=== PATIENT | male | born 1975 | race Caucasian/White ===

== ENCOUNTER 2024-03-04 11:39 | Emergency (ER) | payer OTHER, SELFPAY ==
--- NOTE | ~2024-03-04 | CT_ITS ---
EXAMINATION: CTA brain carotid DATE: 03/04/2024 11:49 INDICATION: Left hemiparesis. TECHNIQUE: Computed tomographic angiography (CTA) of the head was performed without and with 100 mL O mnipaque-350 intravenous contrast. CTA of the neck was performed with intravenous contrast. Automated exposure control and iterative reconstruction technique were employed. The dose-length product was 9 28.06 mGy-cm. Maximum intensity projection and volume rendered 3D-reconstructions were created by the technologist on a separate workstation. COMPARISON: Head CT 03/04/2024 FINDINGS: HEAD CTA: There is no intracranial hemorrhage, acute infarction, or abnormal intracranial mass lesion . The ventricles are normal in size. The orbits are normal. The mastoid air cells are normal. The par anasal sinuses are clear. The vertebral arteries are codominant. There is no significant stenosis of basilar artery or the posterior cerebral arteries. There is no significant stenosis of the intracrani al internal carotid arteries or anterior cerebral arteries. There is total occlusion of a right M2 br anch of middle cerebral artery. Anterior communicating artery is normal. Right posterior communicatin g artery is normal. A left posterior communicating artery is not identified. There is no aneurysm. NECK CTA: The lungs demonstrate mild scarring at the apices. There are no pathologically enlarged lym ph nodes. There is no significant stenosis of the vertebral arteries. There is plaque in proximal rig ht internal carotid artery. There is 0% stenosis of the proximal right internal carotid artery relati ve to normal distal artery lumen diameter (NASCET criteria). There is 0% stenosis of the proximal lef t internal carotid artery relative to normal distal artery lumen diameter. There is mild cervical spo ndylosis. IMPRESSION: 1. Total occlusion of a right M2 middle cerebral artery branch. I called this result to Dr. Chase. 2. 0% stenosis of the proximal internal carotid arteries relative to normal distal artery lumen diame ters (NASCET criteria). Reviewed, dictated and finalized at location A. IMPRESSION: 1. Total occlusion of a right M2 middle cerebral artery branch. I called this r esult to Dr. Chase. 2. 0% stenosis of the proximal internal carotid arteries relative to normal dis michelle artery lumen diameters (NASCET criteria).
--- NOTE | ~2024-03-04 | CT_ITS ---
EXAMINATION: CT brain wo con DATE: 03/04/2024 11:40 INDICATION: Right-sided headache. Left hemiparesis. TECHNIQUE: Computed tomography (CT) of the head was performed without intravenous contrast. The mA wa s adjusted according to patient size. Iterative reconstruction technique was employed. The dose-lengt h product was 605.33 mGy-cm. COMPARISON: None FINDINGS: There is no intracranial hemorrhage, acute infarction, or abnormal intracranial mass lesion . The ventricles are normal in size. There is mild mucosal thickening in the ethmoid sinuses. The mas toid air cells are normal. The orbits are normal. IMPRESSION: 1. Normal brain. I called this result to Dr. Chase. Reviewed, dictated and finalized at location A.
--- NOTE | ~2024-03-04 | XR_ITS ---
EXAMINATION: XR chest 1V portable DATE: 03/04/2024 12:06 INDICATION: Slurred speech. Left hemiparesis. TECHNIQUE: A single frontal view of the chest was obtained. COMPARISON: None. FINDINGS: There is symmetric scarring at the lung apices. No pleural effusion or pneumothorax. The he art size is normal. IMPRESSION: 1. Symmetric scarring at the lung apices. Reviewed, dictated and finalized at location A.
--- NOTE | 2024-03-04 11:36 | ED.NEUROSD ---
HPI - Neuro Symptoms/Deficit General Chief Complaint: Suspected CVA Stated Complaint: code stroke History of Present Illness HPI Narrative: 48-year-old male presenting to the emergency department for evaluation of acute onset left-sided weakness. Patient developed slurred speech, left-sided arm weakness and left lower leg weakness. Patient is not on any blood thinners and patient has no prior history of CVA. Patient reports he woke up at 4:00 a.m and went to sleep on the couch. Patient reports approximately 2 hours prior to arrival he woke up with a headache but states he was able to walk approximately 30 ft states he had onset of leg weakness. Patient was emphatic that his left arm and left leg were working when he woke up. Upon arrival emergency department patient has slurred speech, left arm weakness and left leg weakness. Patient has decreased sensation over the left arm. Mother confirmed that the patient had a fall at 10:30 a.m. and mother also confirmed that the patient did walk approximately 25 ft before he had the fall. Patient denies any prior intracranial surgery, patient has no recent surgeries, no active bleeding and patient is on no blood thinners. Related Data Allergies Allergy/AdvReac Type Severity Reaction Status Date / Time prochlorperazine Allergy Anaphylaxis Verified 03/04/24 12:04 Review of Systems Review of Systems: All systems reviewed & are unremarkable except as noted in HPI and below PMFSH Past Medical History Medical History Acute bronchitis due to other specified organisms Acute pharyngitis, unspecified (10/10/17) Acute sinusitis, unspecified Anxiety disorder, unspecified Bronchitis, not specified as acute or chronic Current moderate episode of major depressive disorder without prior episode Dietary counseling and surveillance (01/12/18) Encounter for screening for lipoid disorders Hordeolum externum left upper eyelid Screening for diabetes mellitus Screening for prostate cancer Vitamin B 12 deficiency Vitamin D deficiency Family History Family History Grandparent Cerebrovascular accident Father Family history of diabetes mellitus in first degree relative Family history of coronary artery disease CHF (congestive heart failure) Pneumonia Mother No problems noted. Sibling No problems noted. 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 Course Course Emergency Course: Patient was transferred to [facility] after tPA Vital Signs Vital signs: Vital Signs Temperature 97.6 F 03/04/24 11:57 Pulse Rate 78 03/04/24 11:57 Respiratory Rate 18 03/04/24 11:57 Blood Pressure 123/94 H 03/04/24 11:57 Pulse Oximetry 100 03/04/24 11:57 Oxygen Delivery Room Air 03/04/24 11:57 Temperature 97.6 F 03/04/24 11:57 Pulse Rate 83 03/04/24 12:30 Respiratory Rate 13 03/04/24 12:30 Blood Pressure 123/78 03/04/24 12:30 Pulse Oximetry 96 03/04/24 12:30 Oxygen Delivery Room Air 03/04/24 11:57 MDM - Neuro Symptoms/Deficit MDM Narrative Medical decision making narrative: 48-year-old male presents emergency department for evaluation for acute onset of left-sided weakness. Patient had a total occlusion of the M2 segment of the right MCA. Patient was within the time frame for tPA. TPA bolus was started emergency department along with the infusion. Case was discussed with Neurology at [facility]. Risks and benefits of tPA were discussed with both patient
[2024-03-04 11:42] LABS: Estimated Glomerular Filt Rate > 60
[2024-03-04 11:57] VITALS: BP 123/94; PULSE 78; RESP 18; TEMP 36.4; O2SAT 100
[2024-03-04 11:59] LABS: Basophils Percent Auto 0.4 % (0.2-1.2); Eosinophils Absolute Auto 0.1 K/mm3 (0-0.3); Eosinophils Percent Auto 1.1 % (0-4.4); Immature Granulocyte Absolute 0.02 K/mm3 (0.00-0.031); Immature Granulocyte Percent A 0.4 % (0-0.5); Lymphocytes Absolute Auto 1.89 K/mm3 (0.9-3.2); Lymphocytes Percent Auto 34.1 % (18.3-44.2); Mean Corpuscular HGB Conc 34.1 g/dl (32-36); Mean Corpuscular Hemoglobin 37.5 pg (26-34); Mean Corpuscular Volume 109.9 fl (80-100); Mean Platelet Volume 10.2 fl (7.4-10.4); Monocytes Absolute Auto 0.4 K/mm3 (0.1-0.6); Monocytes Percent Auto 6.5 % (2.6-8.5); Neutrophils Absolute Auto 3.2 K/mm3 (1.3-6.7); Neutrophils Percent Auto 57.5 % (45.5-73.1); Platelet Count Result 362 k/mm3 (150-375); Red Blood Count 3.73 M/mm3 (4.6-6.20); Red Cell Distribution Width 14.9 % (11.5-14.5); White Blood Count 5.5 K/mm3 (4.5-10.0)
--- NOTE | 2024-03-04 11:59 | ECG_ITS ---
SEE SCANNED COPY FOR CONFIRMED REPORT MTDD
[2024-03-04 12:09] LABS: Platelet Estimate Adequate (Adequate); Schistocytes None Seen
[2024-03-04 12:30] VITALS: BP 123/78; PULSE 83; RESP 13; O2SAT 96
[2024-03-04 12:48] LABS: Alanine Aminotransferase 21 U/L (6-50); Albumin Level 4.2 g/dL (3.5-5.1); Alkaline Phosphatase 76 U/L (38-126); Anion Gap 4 mmol/L (4-12); Aspartate Amino Transferase 32 U/L (17-59); Bilirubin,Total 0.5 mg/dL (0.2-1.3); Blood Urea Nitrogen 11 mg/dL (9-20); Carbon Dioxide 27 mmol/L (22-30); Chloride 107 mmol/L (98-107); Estimated CRCL calculation 81 ml/min; Estimated Glomerular Filt Rate > 60; Glucose 100 mg/dL (65-110); Potassium 4.2 mmol/L (3.4-5.0); Sodium 138 mmol/L (137-145)
[2024-03-04 13:00] LABS: Troponin I < 0.012 ng/mL (0.000-0.034)
[2024-03-11 09:07] LABS: Glucose Point of Care 98 mg/dl (65-105)
== END 2024-03-04 12:43 | disposition short-term general hospital (02) ==
PROVIDERS: Emergency Provider Emergency Medicine; PCP Family Medicine
DX: I63.511 Cerebral infarction due to unspecified occlusion or stenosis of right middle cerebral artery (principal); R29.713 NIHSS score 13; E53.8 Deficiency of other specified B group vitamins; E55.9 Vitamin D deficiency, unspecified; R94.31 Abnormal electrocardiogram [ECG] [EKG]
CPT/HCPCS: 36415; 37195; 70450; 70496; 70498; 71045; 80053; 82948; 84484; 85025; 93005; 99285; J2997; J3101; Q9967

== ENCOUNTER 2024-06-20 12:30 | Outpatient (RCR) | payer OTHER, SELFPAY ==
--- NOTE | 2024-04-03 11:33 | STOPEVAL1 ---
Assessment and note entered by Alma Irvin [employer]KING [employer]ORER Evaluation Information Assessment Status Evaluation Reported Pain Level Pain Score 0: Self Report Assessment ST Clinical Summary COMMUNICATION EVALUATION The patient reports he had a CVA on March 04, 2024, he began having difficulty walking and speaking. He was admitted to [facility] with acute middle cerebral artery stroke. He was then sent to [facility] from 03/14 to 03/31. He reported that Speech Therapy addressed visual neglect/ deficit and other cognitive issues. Patient performed as follows on subtests from the [employer] Information Processing Assessment RIPA) and portions of the [facility] Cognitive Assessment: RIPA: I. Immediate Memory: . Recalled all of 5 and 7 random number strings, but both times added an extra 4 ; recalled 4/5 words in unrelated word string. II. Temporal Orientation/Recent Memory: . IX. Organization: Divergent Naming Task; patient recalled at least 15 items per category, only one time out of 4 categories. On 3/4 categories, patient reached a stopping point and began to ramble, on two occasions, he discussed the category group, and on occasion, he began to talk about introducing his girlfriend to...(therapist stopped him and encouraged return to task, which did not assist with recalling any additional category members). X. Auditory Processing and Retention: points. [facility] Cognitive Evaluation: Functional Math: 100% acc. Auditory Processing of a Paragraph Story: 100% acc. Visual Scanning of a Paragraph: 100% acc. with delays reaching the left side of the paper. Visual Scanning of a Restaurant Menu: 70% acc. Questions concerning right side of page (easy), required a response from the left side of the page, which was more difficult. For example, the prices of menu items were on
--- NOTE | 2024-04-03 12:19 | OTOPEVAL1 ---
Assessment and note entered by Duarte Tao, ADRYAN/Cortez, CHT Evaluation Information Diagnosis CVA Onset 03/04/24 Subjective Information Patient presented to the hospital on 03/04/24 with left sided weakness. Diagnosed with right MCA infarct. He discharged to inpatient rehab where he received OT/PT/ST services. Discharged home on 03/31/24. He lives at home with his mom. He is very motivated to be able to run around with his grandsons again. Current level of functioning - Has a walk in shower, shower chair, but has not showered since discharging home from inpatient rehab. He dresses and toilets independently. He is using a isael cane for his mobility. Their home has 2 steps to get into the home. 1 story home. He is staying on the main floor at this time. His bedroom was in the basement. His mom is doing all of the cooking, cleaning, and laundry. Prior level of functioning - Independent with ADLs , no device, working, and driving. He did the household tasks at home. Works at [employer]. 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 Assessment OT Clinical Summary Patient presents with left sided weakness following CVA. Functional strength, coordination, and use is severely limited due to weakness and tone. Skilled OT indicated to maximize functional use of the left UE through therapeutic exercise, positioning education, muscle facilitatory techniques, NMES, and HEP instruction and progression. He may also benefit from fabrication of a resting hand orthosis due to flexor tone to inhibit hand/wrist muscle shortening and to prevent contractures. Plan of Care Interventions Therapeutic Exercise,Neuro Re-education, Therapeutic Activities,Electrical Stimulation, Check Out for Orthotic/Pr OT Services Indicated Yes Treatment Frequency and 2x/week for 10 visits Duration These treatments will address the objective and functional deficits as defined above. The patient will be advanced safely and appropriately in order for the patient to progress towards his/her prior level of function. Additional exercises will be introduced and as well as a comprehensive home exercise program upon discharge, if needed, ?to ensure carryover of functional gains achieved in the clinic. This treatment plan has
--- NOTE | 2024-04-03 12:19 | OPREHPOC ---
Outpatient Therapy Plan of Care This is a Multidisciplinary Plan of Care that may contain components documented by all disciplines (PT, OT, and ST.) OT Problem 1 OT Problem #1 Knowledge Deficit OT Goal 1 Goal 1. Patient to be independent with instructed materials. Target Visit 10 OT Problem 2 OT Problem #2 Impaired Strength OT Goal 1 Goal 1. Increase (R) shoulder flexion and abduction strength to 3+/5. 2. Increase (R) elbow flexion and extension strength to 3+/5. 3. Increase (R) forearm pronation and supination strength to 3/5. 4. Increase (R) wrist flexion/extension strength to 3/5. 5. Increase (R) finger extension strength to 3/5. 6. Increase (R) finger flexion strength to 4/5. Target Visit 10
--- NOTE | 2024-04-10 16:41 | PTOPEVAL1 ---
Assessment and note entered by Roni Guerrero Evaluation Information Assessment Status Evaluation Diagnosis CVA Onset 03/04/24 Subjective Information Pt. reports he suffered a CVA on 03/04/24. He reports that he woke that morning and noticed he got up to go to the bathroom and lost his balance. He reports matthew the attempted to get up and immediately fell again. His mother was home and found him. He reports that he was flown to [facility] that day. He reports that he was in the hospital for about 10 days before going to rehab. He participated in rehab about 2-3 weeks before returning home on 03/31/24. 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 He was able to drive. He reports that he currently has limited use of the left arm and left leg. He is using a described isael walker for ambulation. He reports that he currently lives with his mother. He reports prior to the stroke he lived in the basement, however currently lives upstairs due to difficulty with stairs. He reports that he still has trouble with putting on his shirts and needs occasional help. he states that he can only walk short distance and the left leg fatigues easily. He reports that his goal is to be able to walk without an AD. Reported Pain Level Pain Score 4: Self Report Assessment PT Clinical Summary Pt. is a 48 year old male who enters the clinic for initial evaluation following CVA with left sided hemiplegia. He presents with impaired gait, impaired balance, impaired l.e. strength and functional decline. Continued skilled PT is indicated in order to improve these areas to assist the pt. in achieving his goal of improved gait and improved balance. Plan of Care Interventions Electrical Stimulation,Gait Training,Manual Therapy,Neuro Re-education,Patient/Caregiver Educati,Therapeutic Activities,Therapeutic Exercise,Self-Care/Home Management PT Services Indicated Yes Treatment Frequency and 2x/week x 10 visits Duration These treatments will address the objective and functional deficits as defined above. The patient will be advanced safely and appropriately in order for the patient to progress towards his/her prior level of function. Additional exercises will be introduced and as well as a comprehensive home exercise program upon discharge, if
--- NOTE | 2024-04-10 16:41 | OPREHPOC ---
Outpatient Therapy Plan of Care This is a Multidisciplinary Plan of Care that may contain components documented by all disciplines (PT, OT, and ST.) PT Problem 1 PT Problem #1 Knowledge Deficit PT Goal 1 Goal Independent with a HEP focusing on l.e. strength. Target Visit 2 PT Problem 2 PT Problem #2 Impaired Balance PT Goal 1 Goal Improve tinetti score to 19 or greater indicating improve safety Target Visit 10 PT Problem 3 PT Problem #3 Impaired Gait PT Goal 1 Goal Pt. will be able to ambulate without an AD for distance of 150' with cga. Target Visit 10 PT Problem 4 PT Problem #4 Impaired Functional Mobil PT Goal 1 Goal Pt. will complete the 6 minute walk test with a single point cane with cga over a distance of 300' for community navigation. Target Visit 10 OT Problem 1 OT Problem #1 Knowledge Deficit OT Goal 1 Goal 1. Patient to be independent with instructed materials. Target Visit 10 OT Problem 2 OT Problem #2 Impaired Strength OT Goal 1 Goal 1. Increase (R) shoulder flexion and abduction strength to 3+/5. 2. Increase (R) elbow flexion and extension strength to 3+/5. 3. Increase (R) forearm pronation and supination strength to 3/5. 4. Increase (R) wrist flexion/extension strength to 3/5. 5. Increase (R) finger extension strength to 3/5. 6. Increase (R) finger flexion strength to 4/5. Target Visit [address] Problem #[address] Goal 1 Goal 1. Patient will voice and demonstrate anatomy and physiology related to (swallowing and voicing), communication impairment, swallowing impairment, treatment plan, home exercise program, compensatory programs, and risks and benefits related to direct Speech Therapy tasks. Target Visit [address] Problem #[address] Goal 1 Goal 1. Demonstrate recall of specific memory
--- NOTE | 2024-05-02 12:17 | STOPDC ---
Assessment and note entered by Alma Irvin [employer] Evaluation Information Assessment Status Discharge Reported Pain Level Pain Score 0: Self Report Pain Score 1: Self Report Pain Score 0: Self Report Assessment ST Clinical Summary TREATMENT AND DISCHARGE SUMMARY Patient has been seen for 8 visits of skilled Speech Therapy focusing on memory/recall, attention to task, and visual scanning/reading comprehension secondary to left visual deficit/ neglect. Initially patient was verbose and frequently allowed himself to stray from task with random, unrelated comments, improving such that by last session, patient was well able to stay on task and complete tasks with no significant effort to remain on task or cueing by therapist. Additionally, he exhibited good memory for items presented verbally by therapist and good ability to find all items required on the left side of page. Patient is being discharged with goals achieved and no further skilled Speech Therapy required. Therapist will provide patient with a packet of visual tasks such as mazes/maps and other visual puzzles to complete independently. Patient was in agreement with discharge recommendations. Plan of Care ST Services Indicated No
--- NOTE | 2024-05-13 14:33 | OTOPPROG ---
Assessment and note entered by ADRYAN Bolton/Cortez, CHT Progress Update 05/13/24 Diagnosis CVA Onset 03/04/24 Subjective Information Patient reports he is slowly making improvements. Notices his hand and wrist are moving better. He is using the left hand on the rollator when walking into the clinic. Unable to to the brake on the rollator with the left hand however. He reports he is doing his bathing, dressing, and toileting independently. Assessment OT Clinical Summary Patient presents with left sided weakness following CVA. Today he is demonstrating improvements in all planes of motion in the left arm. Noted improvements in functional ROM and strength. He continues to demonstrate severe limitations with functional use to residual strength and coordination deficits. Continued skilled OT indicated to maximize functional use of the left UE through therapeutic exercise, positioning education, muscle facilitatory techniques, NMES, and HEP instruction and progression. Plan of Care Interventions Therapeutic Exercise,Neuro Re-education, Therapeutic Activities,Electrical Stimulation, Check Out for Orthotic/Pr OT Services Indicated Yes Treatment Frequency and 2x/week for 10 visits Duration These treatments will address the objective and functional deficits as defined above. The patient will be advanced safely and appropriately in order for the patient to progress towards his/her prior level of function. Additional exercises will be introduced and as well as a comprehensive home exercise program upon discharge, if needed, ?to ensure carryover of functional gains achieved in the clinic. This treatment plan has been reviewed and agreement upon by the patient.
--- NOTE | 2024-05-13 14:33 | OPREHPOC ---
Outpatient Therapy Plan of Care This is a Multidisciplinary Plan of Care that may contain components documented by all disciplines (PT, OT, and ST.) PT Problem 1 PT Problem #1 Knowledge Deficit PT Goal 1 Goal Independent with a HEP focusing on l.e. strength. Target Visit 2 PT Problem 2 PT Problem #2 Impaired Balance PT Goal 1 Goal Improve tinetti score to 19 or greater indicating improve safety Target Visit 10 PT Problem 3 PT Problem #3 Impaired Gait PT Goal 1 Goal Pt. will be able to ambulate without an AD for distance of 150' with cga. Target Visit 10 PT Problem 4 PT Problem #4 Impaired Functional Mobil PT Goal 1 Goal Pt. will complete the 6 minute walk test with a single point cane with cga over a distance of 300' for community navigation. Target Visit 10 OT Problem 1 OT Problem #1 Knowledge Deficit OT Goal 1 Goal 1. Patient to be independent with instructed materials. ---OT POC UPDATE 05/13/24--- 1. Met Target Visit 20 OT Problem 2 OT Problem #2 Impaired Strength OT Goal 1 Goal 1. Increase (R) shoulder flexion and abduction strength to 3+/5. 2. Increase (R) elbow flexion and extension strength to 3+/5. 3. Increase (R) forearm pronation and supination strength to 3/5. 4. Increase (R) wrist flexion/extension strength to 3/5. 5. Increase (R) finger extension strength to 3/5. 6. Increase (R) finger flexion strength to 4/5. ---OT POC UPDATE 05/13/24--- 1. Progressing, continue 2. Progressing, continue 3. Progressing, continue 4. Progressing, continue 5. Progressing, continue 6. Progressing, continue Target Visit [address] Problem #[address] Goal 1 Goal 1. Patient will voice and demonst
--- NOTE | 2024-05-13 15:14 | OPREHPOC ---
Outpatient Therapy Plan of Care This is a Multidisciplinary Plan of Care that may contain components documented by all disciplines (PT, OT, and ST.) PT Problem 1 PT Problem #1 Knowledge Deficit PT Goal 1 Goal Independent with a HEP focusing on l.e. strength. Target Visit 2 Progress Met Comment 05-13-24 progress goal met continue to progress HEP and education PT Goal 2 Target Visit 19 PT Problem 2 PT Problem #2 Impaired Balance PT Goal 1 Goal Improve tinetti score to 19 or greater indicating improve safety Target Visit 10 Progress Not Met Comment 05-13-24 progress goal not met, is 11/23 continue towards goal PT Goal 2 Target Visit 19 PT Problem 3 PT Problem #3 Impaired Gait PT Goal 1 Goal Pt. will be able to ambulate without an AD for distance of 150' with cga. Target Visit 10 Progress Not Met Comment 05-13-24 progress goal not met continue towards goal PT Goal 2 Target Visit 19 PT Problem 4 PT Problem #4 Impaired Functional Mobility PT Goal 1 Goal Pt. will complete the 6 minute walk test with a single point cane with cga over a distance of 300' for community navigation. Target Visit 10 Progress Partially Met Comment 05-13-24 progress goal met for distance walked but used rollator PT Goal 2 Goal NEW GOALS: 1* 6 minute walking test distance of 475' with assistive device 2* pt report going into his basement, 14 steps without any issues 3* pt transfer sitting/floor with use of UE on mat to assist
--- NOTE | 2024-05-13 15:15 | PTOPPROG ---
Assessment and note entered by Katy Carpio, PT Progress Report Assessment Status Progress Diagnosis CVA Onset 03/04/24 Subjective Information walking is better; use isael cane at home and rollator when going out; have not had any falls; doing the leg exercises at home; want to be able to do down into my basement, 14 steps with one hand railing --have 2 steps into home and doing OK with the cane on them; Assessment PT Clinical Summary Jefferson has received 10 PT sessions. Compared to the initial evaluation: Tinetti score improved by 1 to 11/23= high risk for falls; TUG from 45 to 44 seconds- using rollator; 6 minute walking test distance from 190' to 400', using rollator walker; able to perform 12 steps with 1 hand railing and CGA for safety; education for HEP, safety and balance activities. The goals were partially met. Continue PT. Plan of Care Interventions Neuro Re-education,Patient/Caregiver Education, Therapeutic Activities,Therapeutic Exercise PT Services Indicated Yes Treatment Frequency and 2x/wk for 9 visits Duration These treatments will address the objective and functional deficits as defined above. The patient will be advanced safely and appropriately in order for the patient to progress towards his/her prior level of function. Additional exercises will be introduced and as well as a comprehensive home exercise program upon discharge, if needed, ?to ensure carryover of functional gains achieved in the clinic. This treatment plan has been reviewed and agreement upon by the patient.
--- NOTE | 2024-06-13 11:51 | PCPTNOTE ---
Pt canceled due to illness.
--- NOTE | 2024-06-20 11:49 | OTOPPROG ---
Assessment and note entered by ADRYAN Bolton/Cortez, BECKY OT Progress Update 06/20/24 Assessment Status Progress Diagnosis CVA Onset 03/04/24 Subjective Information Patient reports he is making improvements with left UE function and strength. He reports his hand is opening better and his crystal finisher is improving, which has allowed for improved function with reaching, gripping, and releasing tasks. He states he can reach higher and lifting heavier objects too. He is very motivated and compliant with HEP. Assessment OT Clinical Summary Patient presents with left sided weakness following CVA. Today he is demonstrating improvements in all planes of motion in the left arm. Noted improvements in functional ROM and strength. He no longer is functioning in a tonal pattern. He is now able to raise the arm through 120 degrees of shoulder flexion. He is also able to actively extend the elbow fully. He is able to crystal finisher and release objects and his crystal finisher strength improved from 17 to 39 lbs. Today he was also able to place 3 pegs in the 9-hole peg assessment today, which is vastly improved from the start of care. Continued skilled OT indicated to maximize functional use of the left UE through therapeutic exercise, positioning education, muscle facilitatory techniques, NMES, and HEP instruction and progression. Plan of Care Interventions Therapeutic Exercise,Neuro Re-education, Therapeutic Activities,Electrical Stimulation OT Services Indicated Yes Treatment Frequency and 2x/week for 10 visits Duration These treatments will address the objective and functional deficits as defined above. The patient will be advanced safely and appropriately in order for the patient to progress towards his/her prior level of function. Additional exercises will be introduced and as well as a comprehensive home exercise program upon discharge, if needed, ?to ensure carryover of functional gains achieved in the clinic. This treatment plan has been reviewed and agreement upon by the patient.
--- NOTE | 2024-06-20 11:49 | OPREHPOC ---
Outpatient Therapy Plan of Care This is a Multidisciplinary Plan of Care that may contain components documented by all disciplines (PT, OT, and ST.) PT Problem 1 PT Problem #1 Knowledge Deficit PT Goal 1 Goal Independent with a HEP focusing on l.e. strength. Target Visit 2 Progress Met PT Goal 2 Target Visit 19 PT Problem 2 PT Problem #2 Impaired Balance PT Goal 1 Goal Improve tinetti score to 19 or greater indicating improve safety Target Visit 10 Progress Not Met PT Goal 2 Target Visit 19 PT Problem 3 PT Problem #3 Impaired Gait PT Goal 1 Goal Pt. will be able to ambulate without an AD for distance of 150' with cga. Target Visit 10 Progress Not Met PT Goal 2 Target Visit 19 PT Problem 4 PT Problem #4 Impaired Functional Mobil PT Goal 1 Goal Pt. will complete the 6 minute walk test with a single point cane with cga over a distance of 300' for community navigation. Target Visit 10 Progress Partially Met PT Goal 2 Goal NEW GOALS: 1* 6 minute walking test distance of 475' with assistive device 2* pt report going into his basement, 14 steps without any issues 3* pt transfer sitting/floor with use of UE on mat to assist 4* TUG 38 seconds with assistive device Target Visit 19 OT Problem 1 OT Problem #1 Knowledge Deficit OT Goal 1 Goal 1. Patient to be independent with instructed materials. ---OT POC UPDATE 05/13/24--- 1. Met ---OT POC UPDATE 06/20/24--- 1. Met, continue as HEP is progressed Target Visit 30 OT Problem 2 OT Problem #2 Impaired Strength OT Goal 1 Goal 1. Increase (R) shoulder flexion and abduction strength
--- NOTE | 2024-06-20 13:35 | OPREHPOC ---
Outpatient Therapy Plan of Care This is a Multidisciplinary Plan of Care that may contain components documented by all disciplines (PT, OT, and ST.) PT Problem 1 PT Problem #1 Knowledge Deficit PT Goal 1 Goal Independent with a HEP focusing on l.e. strength. Target Visit 2 Progress Met Comment 05-13-24 progress goal met continue to progress HEP and education PT Goal 2 Target Visit 19 Progress Met Comment 06-20-24 progress goal met; continue to progress education and HEP TARGET 28 visits PT Problem 2 PT Problem #2 Impaired Balance PT Goal 1 Goal Improve tinetti score to 19 or greater indicating improve safety Target Visit 10 Progress Not Met Comment 05-13-24 progress goal not met, is 11/23 continue towards goal PT Goal 2 Target Visit 19 Progress Met Comment 06-20-24 progress goal met; NEW GOALS: 1* Mares balance score of 52/56 TARGET 28 visits PT Problem 3 PT Problem #3 Impaired Gait PT Goal 1 Goal Pt. will be able to ambulate without an AD for distance of 150' with cga. Target Visit 10 Progress Not Met Comment 05-13-24 progress goal not met continue towards goal PT Goal 2 Target Visit 19 Progress Met Comment 06-20-24 progress goal met; PT Problem 4 PT Problem
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
--- NOTE | 2024-06-27 08:27 | PCOTNOTE ---
This treatment is being continued on visit number [id number]. Please see documentation on both accounts to view progress. Completed interventions, outcomes, and problems have been marked as Inactive to facilitate the copying of the Care plan routine for recurring accounts.
--- NOTE | 2024-06-28 16:22 | PCPTNOTE ---
This treatment is being continued on visit number [id number]. Please see documentation on both accounts to view progress. Completed interventions, outcomes, and problems have been marked as Inactive to facilitate the copying of the Care plan routine for recurring accounts.
== END 2024-06-26 11:43 | disposition home or self-care (01) ==
LOC: ANHPT 12:30
PROVIDERS: PCP Family Medicine; Visit Provider Family Medicine
DX: I63.411 Cerebral infarction due to embolism of right middle cerebral artery (principal); I69.318 Other symptoms and signs involving cognitive functions following cerebral infarction; I69.354 Hemiplegia and hemiparesis following cerebral infarction affecting left non-dominant side; I69.398 Other sequelae of cerebral infarction; R41.89 Other symptoms and signs involving cognitive functions and awareness
CPT/HCPCS: 92507; 92523; 97110; 97112; 97116; 97162; 97166; 97530

== ENCOUNTER 2024-09-30 12:30 | Outpatient (RCR) | payer OTHER, SELFPAY ==
--- NOTE | 2024-06-27 08:28 | PCOTNOTE ---
The treatment documented on this account is a continuation of the treatment documented on visit number [id number]. Please see documentation on both accounts to view progress. The Plan of Care has been transitioned and updated within the new V#. I have addressed and agree with the discipline specific Problems, Interventions, and Goals for the current certification period. Completed interventions, outcomes, and problems have been marked as Inactive to facilitate the copying of the Care plan routine for recurring accounts.
--- NOTE | 2024-06-28 16:23 | PCPTNOTE ---
This treatment is being continued from visit number [id number]. Please see documentation on both accounts to view progress. Completed interventions, outcomes, and problems have been marked as Inactive to facilitate the copying of the Care plan routine for recurring accounts.
--- NOTE | 2024-08-01 11:51 | PTOPPROG ---
Assessment and note entered by Katy Carpio, PT Progress Report Assessment Status Progress Diagnosis CVA Onset 03/04/24 Subjective Information am walking better, able to lift more weight, balance is better--able to correct myself easier, but still need more therapy; have not had any falls; have not returned to driving yet; Assessment PT Clinical Summary Jefferson has received 27 PT sessions. Compared to the last reassessment: he has improved in all areas: Mares balance from 46 to 50/ 56; 6 minute walking test distance from 825' with cane to 1125' without device; maximum lifting with bilateral UE waist/floor height 40# x 4 reps; single leg standing R 6/ L 2 seconds; tandem stand lead R and L ~ 20 seconds with decreased stability; with 8 alternating toe taps onto 6 step - caught toe 4x and today 1x. Increase activity level with home activity and out into the community. The goals were partially achieved. Continue PT treatments for further increase in strength and mobility to return to full work duties. Plan of Care Interventions Gait Training,Neuro Re-education,Patient Education,Therapeutic Activities,Therapeutic Exercise PT Services Indicated Yes Treatment Frequency and 2x/wk for 10 visits Duration These treatments will address the objective and functional deficits as defined above. The patient will be advanced safely and appropriately in order for the patient to progress towards his/her prior level of function. Additional exercises will be introduced and as well as a comprehensive home exercise program upon discharge, if needed, ?to ensure carryover of functional gains achieved in the clinic. This treatment plan has been reviewed and agreement upon by the patient.
--- NOTE | 2024-08-01 11:56 | OTOPPROG ---
Assessment and note entered by Duarte Tao, ADRYAN/Cortez, CHT OT Progress Update 08/01/24 Diagnosis CVA Onset 03/04/24 Subjective Information Patient reports he is making improvements with left UE function and strength. He is now able to don and wear jeans, using the left hand to button the pants and fasten his belt. 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 He is very motivated and compliant with HEP. Assessment OT Clinical Summary Patient presents with left sided weakness following CVA. Today he is demonstrating improvements in all planes of motion in the left arm. Noted improvements in functional ROM and strength. He no longer is functioning in a tonal pattern. We are now able to isolate different planes of motion in the shoulder, moving into internal and external rotation, abduction, and extension. Overall strength of the shoulder, elbow , forearm, wrist, and hand have all improved. Last assessment it took him [address] 3 pegs in the 9-hole peg assessment. Today he was able to complete the entire test (place and remove all 9 pegs) in 2 minutes and 59 seconds. His goal is to be able to return to work next month and he will greatly benefit from continued skilled services to continue to fine tune functional strength and coordination. Continued skilled OT indicated to maximize functional use of the left UE through therapeutic exercise, positioning education, muscle facilitatory techniques, NMES, and HEP instruction and progression. Plan of Care Interventions Therapeutic Exercise,Neuro Re-education, Therapeutic Activities,Electrical Stimulation OT Services Indicated Yes Treatment Frequency and 2x/week for 10 visits Duration These treatments will address the objective and functional deficits as defined above. The patient will be advanced safely and appropriately in order for the patient to progress towards his/her prior level of function. Additional exercises will be introduced and as well as a comprehensive home exercise program upon discharge, if needed, ?to ensure carryover of functional gains achieved in the clinic. This treatment plan has been reviewed and agreement upon by the patient.
--- NOTE | 2024-08-01 11:57 | OPREHPOC ---
Outpatient Therapy Plan of Care This is a Multidisciplinary Plan of Care that may contain components documented by all disciplines (PT, OT, and ST.) PT Problem 1 PT Problem #1 Knowledge Deficit PT Goal 1 Goal / Goal Update Independent with a HEP focusing on l.e. strength. Target Visit 2 Progress Met PT Goal 2 Goal / Goal Update 08-01-24 progress goal met continue to progress education and HEP Target Visit 37 Progress Met PT Problem 2 PT Problem #2 Impaired Balance PT Goal 1 Goal / Goal Update Improve tinetti score to 19 or greater indicating improve safety Target Visit 10 Progress Not Met PT Goal 2 Goal / Goal Update 08-01-24 progress improved but goal not met: 50/56 NEW GOAL: 1* Mares balance score of 56/56 Target Visit 37 Progress Met PT Problem 3 PT Problem #3 Impaired Gait PT Goal 1 Goal / Goal Update Pt. will be able to ambulate without an AD for distance of 150' with cga. Target Visit 10 Progress Not Met PT Goal 2 Target Visit 19 Progress Met PT Problem 4 PT Problem #4 Impaired Functional Mobil PT Goal 1 Goal / Goal Update Pt. will complete the 6 minute walk test with a single point cane with cga over a distance of 300' for community navigation. Target Visit 10 Progress Partially Met PT Goal 2 Goal / Goal Update NEW GOALS: 1* 6 minute walking test distance of 475' with assistive device 2* pt report going into his basement, 14 steps without any issues 3* pt transfer sitting/floor with use of UE on mat to assist 4* TUG 38 seconds with assistive device 08-01-24 progress goals met 1,4 NEW GOALS: 1* bilateral UE lift waist/floor 50# x 3 reps 2* 6 minute walking test distance of 1300' without device 3* 12 steps without hand railing, indep 4* single leg standing R 10 seconds 5* single leg standing L 8 seconds Target Visit 37 Progress Met OT Problem 1 OT Problem #1 Knowledge Deficit OT Goal 1 Goal / Goal Update 1. Patient to be independent with instructed materials. ---OT POC UPDATE 05/13/24--- 1. Met ---OT POC UPDATE 06/20/24--- 1. Met, continue as HEP is progressed ---OT POC UPDATE 08/01/24--- 1. Met, continue as HEP is progressed Target Visit 40 OT Problem 2 OT Problem #2 Impaired Strength OT Goal 1 Goal / Goal Update 1. Increase (R) shoulder flexion and abduction strength to 3+/5. 2. Increase (R) elbow flexion and extension strength to 3+/5. 3. Increase (R) forearm pronation and supination strength to 3/5. 4. Increase (R) wrist flexion/extension strength to 3/5. 5. Increase (R) finger extension strength to 3/5. 6. Increase (R) finger flexion strength to 4/5. ---OT POC UPDATE 05/13/24--- 1. Progressing, continue 2. Progressing, continue 3. Progressing, continue 4. Progressing, continue 5. Progressing, continue 6. Progressing, continue ---OT POC UPDATE 06/20/24--- 1. Progressing, continue 2. Met, upgrade to 4+/5 3. Met, upgrade to 4+/5 4. Met, upgrade to 4+/5 5. Met, upgrade to 4+/5 6. 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 ---OT POC UPDATE 08/01/24--- 1. Progressing, continue 2. Progressing, continue 3. Progressing, continue 4. Progressing, continue 5. Progressing, continue 6. Progressing, continue Target Visit 40 OT Goal 1 Goal / Goal Update ---OT POC UPDATE 06/20/24--- * New Goal * 1. Patient to be able to complete the 9-hole peg test with the left hand in 60 seconds or less. ---OT POC UPDATE 08/01/24--- 1. Progressing, continue Target Visit [address] Problem #[address] Goal 1 Goal / Goal Update 1. Patient will voice and demonstrate anatomy and physiology related to (swallowing and voicing), communication impairment, swallowing impairment, treatment plan, home exercise program, compensatory programs, and risks and benefits related to direct Speech Therapy tasks. Target Visit [address] Problem [address] ST Problem #[address] Goal 1 Goal / Goal Update 1. Demonstrate recall of specific memory strategies 90% acc. 2. Choose appropriate memory strategies when presented with a variety of situations involving use of memory 90% of the time. 3. Improve immediate memory to 90% accuracy for 4- 5 related-word strings, 3-4 related number strings , and information in short to complex paragraphs stories. 4. Patient will complete tasks to improve attention to task and ability to sustain attention to tasks 80% of the time as indicated by timing of task (i.e. 1 minute task, increasing to 5+ minutes to complete the task). Target Visit [address] Goal 2 Goal / Goal Update 1. Utilize compensatory techniques to assist with visual scanning 90% of the time. 2. Complete visual scanning/reading comprehension tasks with 90% accuracy. Target Visit 8 Progress Met
--- NOTE | 2024-08-22 08:27 | PCOTNOTE ---
Pt. called to cancel this AM due to illness.
--- NOTE | 2024-08-22 10:30 | PCPTNOTE ---
Pt called to cancel his appointment due to illness
--- NOTE | 2024-09-16 10:54 | OTOPPROG ---
Assessment and note entered by Duarte Tao, ADRYAN/Cortez, CHT OT Progress Update 09/16/24 Assessment Status Progress Diagnosis CVA Onset 03/04/24 Subjective Information Patient reports he is making improvements with left UE function and strength. Patient is now carrying bags, opening doors, buttoning his jeans, using both hands to lift and move a pot of water and a crate (in therapy), closing his car door, carrying items up/down stairs with the left UE. He is very motivated and compliant with HEP. He reports he is going back to work, he is still working out the details about going back. 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 - Left lateral pinch strength improved from 6 to 8 lbs. - Patient was able to complete palmar and tip pinching on the pinch gauge today, measuring 4 and 3 lbs. respectively - 9-hole peg test improved from 3 minutes to 1.5 minutes to complete with the left hand Assessment OT Clinical Summary Patient presents with left sided weakness following CVA. Today he is demonstrating improvements in all planes of motion in the left arm. Noted improvements in functional ROM, strength, and functional coordination. We are now able to isolate different planes of motion in the shoulder, moving into internal and external rotation, abduction, and extension. Overall strength of the shoulder, elbow, forearm, wrist, and hand have all improved. Last assessment it took him 179 seconds to complete the 9-hole peg assessment. Today he was able to complete the test in 94 seconds. He has been able to lift and carry heavier objects as well as lift objects into high cabinets. Continued skilled therapy services strongly recommended to continue to fine tune functional strength and coordination. Continued skilled OT indicated to maximize functional use of the left UE through therapeutic exercise, functional coordination activities, and HEP instruction and progression. Plan of Care Interventions Therapeutic Exercise,Neuro Re-education, Therapeutic Activities,Electrical Stimulation OT Services Indicated Yes Treatment Frequency and 2x/week for 10 visits Duration These treatments will address the objective and functional deficits as defined above. The patient will be advanced safely and appropriately in order for the patient to progress towards his/her prior level of function. Additional exercises will be introduced and as well as a comprehensive home exercise program upon discharge, if needed, ?to ensure carryover of functional gains achieved in the clinic. This treatment plan has been reviewed and agreement upon by the patient.
--- NOTE | 2024-09-16 10:54 | OPREHPOC ---
Outpatient Therapy Plan of Care This is a Multidisciplinary Plan of Care that may contain components documented by all disciplines (PT, OT, and ST.) PT Problem 1 PT Problem #1 Knowledge Deficit PT Goal 1 Goal / Goal Update Independent with a HEP focusing on l.e. strength. Target Visit 2 Progress Met PT Goal 2 Goal / Goal Update 08-01-24 progress goal met continue to progress education and HEP Target Visit 37 Progress Met PT Problem 2 PT Problem #2 Impaired Balance PT Goal 1 Goal / Goal Update Improve tinetti score to 19 or greater indicating improve safety Target Visit 10 Progress Not Met PT Goal 2 Goal / Goal Update 08-01-24 progress improved but goal not met: 50/56 NEW GOAL: 1* Mares balance score of 56/56 Target Visit 37 Progress Met PT Problem 3 PT Problem #3 Impaired Gait PT Goal 1 Goal / Goal Update Pt. will be able to ambulate without an AD for distance of 150' with cga. Target Visit 10 Progress Not Met PT Goal 2 Target Visit 19 Progress Met PT Problem 4 PT Problem #4 Impaired Functional Mobil PT Goal 1 Goal / Goal Update Pt. will complete the 6 minute walk test with a single point cane with cga over a distance of 300' for community navigation. Target Visit 10 Progress Partially Met PT Goal 2 Goal / Goal Update NEW GOALS: 1* 6 minute walking test distance of 475' with assistive device 2* pt report going into his basement, 14 steps without any issues 3* pt transfer sitting/floor with use of UE on mat to assist 4* TUG 38 seconds with assistive device 08-01-24 progress goals met 1,4 NEW GOALS: 1* bilateral UE lift waist/floor 50# x 3 reps 2* 6 minute walking test distance of 1300' without device 3* 12 steps without hand railing, indep 4* single leg standing R 10 seconds 5* single leg standing L 8 seconds Target Visit 37 Progress Met OT Problem 1 OT Problem #1 Knowledge Deficit OT Goal 1 Goal / Goal Update 1. Patient to be independent with instructed materials. ---OT POC UPDATE 05/13/24--- 1. Met ---OT POC UPDATE 06/20/24--- 1. Met, continue as HEP is progressed ---OT POC UPDATE 08/01/24--- 1. Met, continue as HEP is progressed ---OT POC UPDATE 09/16/24--- 1. Met, continue as HEP is progressed Target Visit 50 OT Problem 2 OT Problem #2 Impaired Strength OT Goal 1 Goal / Goal Update 1. Increase (R) shoulder flexion and abduction strength to 3+/5. 2. Increase (R) elbow flexion and extension strength to 3+/5. 3. Increase (R) forearm pronation and supination strength to 3/5. 4. Increase (R) wrist flexion/extension strength to 3/5. 5. Increase (R) finger extension strength to 3/5. 6. Increase (R) finger flexion strength to 4/5. ---OT POC UPDATE 05/13/24--- 1. Progressing, continue 2. Progressing, continue 3. Progressing, continue 4. Progressing, continue 5. Progressing, continue 6. Progressing, continue ---OT POC UPDATE 06/20/24--- 1. Progressing, continue 2. Met, upgrade to 4+/5 3. Met, upgrade to 4+/5 4. Met, upgrade to 4+/5 5. Met, upgrade to 4+/5 6. Met, upgrade goal: Increase left golf course mechanic strength to 50 lbs. ---OT POC UPDATE 08/01/24--- 1. Progressing, continue 2. Progressing, continue 3. Progressing, continue 4. Progressing, continue 5. Progressing, continue 6. Progressing, continue ---OT POC UPDATE 09/16/24--- 1. Met, upgrade to 4+/5 2. Met 3. Met 4. Met 5. Progressing, continue 6. Met, upgrade golf course mechanic strength goal to 70 lbs. Target Visit 50 OT Goal 1 Goal / Goal Update ---OT POC UPDATE 06/20/24--- * New Goal * 1. Patient to be able to complete the 9-hole peg test with the left hand in 60 seconds or less. ---OT POC UPDATE 08/01/24--- 1. Progressing, continue ---OT POC UPDATE 09/16/24--- 1. Progressed to 94 sec, continue to 60 sec Target Visit [address] Problem #[address] Goal 1 Goal / Goal Update 1. Patient will voice and demonstrate anatomy and physiology related to (swallowing and voicing), communication impairment, swallowing impairment, treatment plan, home exercise program, compensatory programs, and risks and benefits related to direct Speech Therapy tasks. Target Visit [address] Problem 2 ST Problem #[address] Goal 1 Goal / Goal Update 1. Demonstrate recall of specific memory strategies 90% acc. 2. Choose appropriate memory strategies when presented with a variety of situations involving use of memory 90% of the time. 3. Improve immediate memory to 90% accuracy for 4- 5 related-word strings, 3-4 related number strings , and information in short to complex paragraphs stories. 4. Patient will complete tasks to improve attention to task and ability to sustain attention to tasks 80% of the time as indicated by timing of task (i.e. 1 minute task, increasing to 5+ minutes to complete the task). Target Visit [address] Goal 2 Goal / Goal Update 1. Utilize compensatory techniques to assist with visual scanning 90% of the time. 2. Complete visual scanning/reading comprehension tasks with 90% accuracy. Target Visit 8 Progress Met
--- NOTE | 2024-09-16 11:56 | PTOPDC ---
Assessment and note entered by Katy Carpio, PT Discharge Report Assessment Status Discharge Diagnosis CVA Onset 03/04/24 Subjective Information neurologist has released me to go back to work; paperwork has been turned into work and I am waiting to hear from HR on the start date; Reported Pain Level Pain Score 0: Self Report Pain Score 0: Self Report Additional Pain Score Comments No pain in the left leg-- stiff and tone Assessment PT Clinical Summary Jefferson has received a total of 36 PT sessions. Compared to the last progress report: 6 minute walking test distance from 1125' to 1400'; gait pattern: without cane, increase tone in L LE with decreased motor control; lifting with bilateral UE box lift, 50# from waist/floor height 3 reps with good techinque; 12 steps indep, without hand railing and single step pattern; and with one hand railing, alternate step pattern; Mares balance score of 54/56- single leg standing is only item decreased; LE strength: single leg standing R 10/ L 3 seconds and with 10 reps: bilateral leg press 90#/ R only 70#/ L only 50#; He is independent with his HEP and is to continue working on his L LE strength The PT goals were achieved. Discharge PT services. Jefferson is to continue with his HEP and increasing activity level. Plan of Care PT Services Indicated No
--- NOTE | 2024-10-03 09:05 | PCOTNOTE ---
This treatment is being continued on visit number [id number]. Please see documentation on both accounts to view progress. Completed interventions, outcomes, and problems have been marked as Inactive to facilitate the copying of the Care plan routine for recurring accounts.
== END 2024-10-01 23:59 | disposition home or self-care (01) ==
LOC: ANHOT 12:30
PROVIDERS: PCP Family Medicine; Visit Provider Family Medicine
DX: I63.411 Cerebral infarction due to embolism of right middle cerebral artery (principal); I69.318 Other symptoms and signs involving cognitive functions following cerebral infarction; I69.354 Hemiplegia and hemiparesis following cerebral infarction affecting left non-dominant side; I69.398 Other sequelae of cerebral infarction; R41.89 Other symptoms and signs involving cognitive functions and awareness
CPT/HCPCS: 97014; 97110; 97112; 97116; 97530; G0283

== ENCOUNTER 2024-12-20 13:15 | Outpatient (RCR) | payer OTHER, SELFPAY ==
--- NOTE | 2024-10-03 09:06 | PCOTNOTE ---
The treatment documented on this account is a continuation of the treatment documented on visit number [id number]. Please see documentation on both accounts to view progress. The Plan of Care has been transitioned and updated within the new V#. I have addressed and agree with the discipline specific Problems, Interventions, and Goals for the current certification period. Completed interventions, outcomes, and problems have been marked as Inactive to facilitate the copying of the Care plan routine for recurring accounts.
--- NOTE | 2024-11-04 15:08 | OTOPPROG ---
Assessment and note entered by Duarte Tao, ADRYAN/Cortez, CHT OT Progress Update 11/04/24 Assessment Status Progress Diagnosis CVA Onset 03/04/24 Subjective Information Patient reports he continues to use his left UE as much as possible. He reports he is using his hand at work, carrying items, opening boxes, opening doors, etc. He states he is doing the buttons on his shirt. Able to do the button on his jeans, but it's difficult. He reports some days he functions better than others. He has been having left leg pains and stiffness that have been keeping him from being able to sleep and on those days he has a harder time using his left side. He is tearful today and reports many times that he feels like a burden. He is fearful that he isn't getting any better. Since the last re-eval: - ROM of the left shoulder continues to improve, he is reaching 20 degrees higher with flexion (150 deg.) and 10 degrees higher with abduction (120 deg.) - Left shoulder internal and external rotation improved allowing for more flexibility to reach behind the head and back - ROM of the left elbow, forearm, wrist, and hand is WFL, he continues to have incoordination when moving through ROM - Strength of the left shoulder 4/5 - Strength of the left elbow 4+/5 - Strength of the left wrist 4+/5 - Left crate liner strength decreased from 56 to 45 lbs. - Left lateral pinch strength improved from 8 to 9 lbs. - Left palmar pinch from from 4 to 5 lbs. - Left tip pinch remained at 3 lbs. - 9-hole peg test improved from 94 sec to 79 sec with the left hand Assessment OT Clinical Summary Patient presents with left sided weakness following CVA. Today he is demonstrating improvements with improved flexibility and strength of the shoulder. Also improvements with functional fine motor coordination. He is back to work and he continues to try to use his arm and challenge himself. He continues to benefit from skilled therapy services to fine tune strength and coordination deficits. Continued skilled therapy services strongly recommended to continue to fine tune functional strength and coordination to maximize functional use of the left UE through therapeutic exercise, functional coordination activities, and HEP instruction and progression. Plan of Care Interventions Therapeutic Exercise,Neuro Re-education, Therapeutic Activities,Electrical Stimulation OT Services Indicated Yes Treatment Frequency and 2x/week for 8 visits Duration These treatments will address the objective and functional deficits as defined above. The patient will be advanced safely and appropriately in order for the patient to progress towards his/her prior level of function. Additional exercises will be introduced and as well as a comprehensive home exercise program upon discharge, if needed, ?to ensure carryover of functional gains achieved in the clinic. This treatment plan has been reviewed and agreement upon by the patient.
--- NOTE | 2024-11-04 15:09 | OPREHPOC ---
Outpatient Therapy Plan of Care This is a Multidisciplinary Plan of Care that may contain components documented by all disciplines (PT, OT, and ST.) PT Problem 1 PT Problem #1 Knowledge Deficit PT Goal 1 Goal / Goal Update Independent with a HEP focusing on l.e. strength. Target Visit 2 Progress Met PT Goal 2 Goal / Goal Update 08-01-24 progress goal met continue to progress education and HEP 09-16-24 PT d/c goals met Target Visit 37 Progress Met PT Problem 2 PT Problem #2 Impaired Balance PT Goal 1 Goal / Goal Update Improve tinetti score to 19 or greater indicating improve safety Target Visit 10 Progress Not Met PT Goal 2 Goal / Goal Update 08-01-24 progress improved but goal not met: 50/56 NEW GOAL: 1* Mares balance score of 56/56 09-16-24 PT d/c goal not met, improved to 54/56 Target Visit 37 Progress Not Met PT Problem 3 PT Problem #3 Impaired Gait PT Goal 1 Goal / Goal Update Pt. will be able to ambulate without an AD for distance of 150' with cga. Target Visit 10 Progress Not Met PT Goal 2 Target Visit 19 Progress Met PT Problem 4 PT Problem #4 Impaired Functional Mobil PT Goal 1 Goal / Goal Update Pt. will complete the 6 minute walk test with a single point cane with cga over a distance of 300' for community navigation. Target Visit 10 Progress Partially Met PT Goal 2 Goal / Goal Update NEW GOALS: 1* 6 minute walking test distance of 475' with assistive device 2* pt report going into his basement, 14 steps without any issues 3* pt transfer sitting/floor with use of UE on mat to assist 4* TUG 38 seconds with assistive device 08-01-24 progress goals met 1,4 NEW GOALS: 1* bilateral UE lift waist/floor 50# x 3 reps 2* 6 minute walking test distance of 1300' without device 3* 12 steps without hand railing, indep 4* single leg standing R 10 seconds 5* single leg standing L 8 seconds 09-16-24 PT d/c goals met, excetp #5- is 3 seconds Target Visit 37 Progress Met OT Problem 1 OT Problem #1 Knowledge Deficit OT Goal 1 Goal / Goal Update 1. Patient to be independent with instructed materials. ---OT POC UPDATE 05/13/24--- 1. Met ---OT POC UPDATE 06/20/24--- 1. Met, continue as HEP is progressed ---OT POC UPDATE 08/01/24--- 1. Met, continue as HEP is progressed ---OT POC UPDATE 09/16/24--- 1. Met, continue as HEP is progressed ---OT POC UPDATE 11/04/24--- 1. Met, continue as HEP is progressed Target Visit 53 OT Problem 2 OT Problem #2 Impaired Strength OT Goal 1 Goal / Goal Update 1. Increase (R) shoulder flexion and abduction strength to 3+/5. 2. Increase (R) elbow flexion and extension strength to 3+/5. 3. Increase (R) forearm pronation and supination strength to 3/5. 4. Increase (R) wrist flexion/extension strength to 3/5. 5. Increase (R) finger extension strength to 3/5. 6. Increase (R) finger flexion strength to 4/5. ---OT POC UPDATE 05/13/24--- 1. Progressing, continue 2. Progressing, continue 3. Progressing, continue 4. Progressing, continue 5. Progressing, continue 6. Progressing, continue ---OT POC UPDATE 06/20/24--- 1. Progressing, continue 2. Met, upgrade to 4+/5 3. Met, upgrade to 4+/5 4. Met, upgrade to 4+/5 5. Met, upgrade to 4+/5 6. Met, upgrade goal: Increase left garage door hanger strength to 50 lbs. ---OT POC UPDATE 08/01/24--- 1. Progressing, continue 2. Progressing, continue 3. Progressing, continue 4. Progressing, continue 5. Progressing, continue 6. Progressing, continue ---OT POC UPDATE 09/16/24--- 1. Met, upgrade to 4+/5 2. Met 3. Met 4. Met 5. Progressing, continue 6. Met, upgrade garage door hanger strength goal to 70 lbs. ---OT POC UPDATE 11/04/24--- 1. Progressing, continue 2. Progressing, continue 3. Progressing, continue 4. Progressing, continue 5. Progressing, continue 6. Progressing, continue ---OT POC UPDATE 09/16/24--- 1. Progressing, continue 2. Met 3. Met 4. Met 5. Not met, continue 6. Not met, continue Target Visit 53 OT Goal 1 Goal / Goal Update ---OT POC UPDATE 06/20/24--- * New Goal * 1. Patient to be able to complete the 9-hole peg test with the left hand in 60 seconds or less. ---OT POC UPDATE 08/01/24--- 1. Progressing, continue ---OT POC UPDATE 09/16/24--- 1. Progressed to 94 sec, continue to 60 sec ---OT POC UPDATE 11/04/24--- 1. Progressed to 79 sec, continue to 60 sec Target Visit [address] Problem #[address] Goal 1 Goal / Goal Update 1. Patient will voice and demonstrate anatomy and physiology related to (swallowing and voicing), communication impairment, swallowing impairment, treatment plan, home exercise program, compensatory programs, and risks and benefits related to direct Speech Therapy tasks. Target Visit [address] Problem 2 ST Problem #[address] Goal 1 Goal / Goal Update 1. Demonstrate recall of specific memory strategies 90% acc. 2. Choose appropriate memory strategies when presented with a variety of situations involving use of memory 90% of the time. 3. Improve immediate memory to 90% accuracy for 4- 5 related-word strings, 3-4 related number strings , and information in short to complex paragraphs stories. 4. Patient will complete tasks to improve attention to task and ability to sustain attention to tasks 80% of the time as indicated by timing of task (i.e. 1 minute task, increasing to 5+ minutes to complete the task). Target Visit [address] Goal 2 Goal / Goal Update 1. Utilize compensatory techniques to assist with visual scanning 90% of the time. 2. Complete visual scanning/reading comprehension tasks with 90% accuracy. Target Visit 8 Progress Met
--- NOTE | 2024-12-20 14:11 | OTOPDC ---
Assessment and note entered by Duarte Tao, ADRYAN/Cortez, CHT OT Discharge 12/20/24 Assessment Status Discharge Diagnosis CVA Onset 03/04/24 Subjective Information Patient reports he continues to use his left UE as much as possible. He has progressed to being able to button and zip his jeans with less difficulty. 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 He reports he got a gym membership and has been swimming in the pool at the gym. Patient becomes tearful during the re- evaluation, feeling like he's going backwards, feeling like he's going to get fired from work. Since the last re-eval (11/04/24) patient's shoulder ROM has remained unchanged, 150 deg of flexion and 120 deg of abduction. Left elbow, forearm, wrist, and hand ROM continues to be WFL. He continues to have incoordination when moving through ROM. Strength remained unchanged: - Strength of the left shoulder 4/5 - Strength of the left elbow 4+/5 - Strength of the left wrist 4+/5 - Left gastroenterology technician strength decreased from 45 lbs. to 38 - 9-hole peg test 86 seconds, which is 7 seconds slower Reported Pain Level Pain Score 4: Self Report Assessment OT Clinical Summary Patient referred to OT with left sided weakness and incoordination s/p CVA. He has been attending therapy x9 months and has made excellent progress overall. Unfortunately over the past month he has reached a progress plateau as described in the subjective summary above. Patient continues to be very functional, however. He is using his arm as much as possible and has began going to the gym and swimming. At this time we are discharging OT with HEP. Plan of Care OT Services Indicated No
== END 2024-12-23 15:06 | disposition home or self-care (01) ==
LOC: ANHOT 13:15
PROVIDERS: PCP Family Medicine; Visit Provider Family Medicine
DX: I63.411 Cerebral infarction due to embolism of right middle cerebral artery (principal); I69.318 Other symptoms and signs involving cognitive functions following cerebral infarction; I69.354 Hemiplegia and hemiparesis following cerebral infarction affecting left non-dominant side; I69.398 Other sequelae of cerebral infarction; R41.89 Other symptoms and signs involving cognitive functions and awareness
CPT/HCPCS: 97110; 97112; 97530

== ENCOUNTER 2025-05-09 10:15 | Outpatient (RCR) | payer MEDICAID, OTHER, SELFPAY ==
[2025-02-13 10:50] VITALS: BP_SYST 100
--- NOTE | 2025-02-13 11:41 | OTOPEVAL1 ---
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 He attended therapy here March 2024-Nov 2024. He returns due to regressing and having falls. He reports in the last month he has had 10 falls at least. Reports left shoulder pain at 8-9/10 with ROM. He reports he is able to use his left hand to open doors and help dress himself. Reported Pain Level Pain Score 9: Self Report Assessment OT Clinical Summary Patient referred to OT with dx of hemiplegia, TIA/ CVA, and repeated falls. He presents with only OT orders. Requesting PT orders for gait/mobility. Skilled OT indicated for left shoulder weakness, pain, gross L UE weakness to facilitate reduced pain and improved functional use of his left UE. Plan of Care Interventions Therapeutic Exercise,Manual Therapy,Neuro Re- education,Therapeutic Activities,Hot Pack/Cold Pack OT Services Indicated Yes Treatment Frequency and 2x/week for 10 visits Duration These treatments will address the objective and functional deficits as defined above. The patient will be advanced safely and appropriately in order for the patient to progress towards his/her prior level of function. Additional exercises will be introduced and as well as a comprehensive home exercise program upon discharge, if needed, ?to ensure carryover of functional gains achieved in the clinic. This treatment plan has been reviewed and agreement upon by the patient.
--- NOTE | 2025-02-13 11:41 | OPREHPOC ---
Outpatient Therapy Plan of Care This is a Multidisciplinary Plan of Care that may contain components documented by all disciplines (PT, OT, and ST.) OT Problem 1 OT Problem #1 Knowledge Deficit OT Goal 1 Goal / Goal Update Patient to be independent with instructed materials. Target Visit 10 OT Problem 2 OT Problem #2 Pain OT Goal 1 Goal / Goal Update Patient to report reduced left shoulder pain to 4/ 10 or less with ADLs. Target Visit 10 OT Problem 3 OT Problem #3 Impaired Flexibility OT Goal 1 Goal / Goal Update Patient to improve functional flexibility of the left shoulder to improve comfort with shoulder use as measured by progressing to 120 degrees of active shoulder flexion and abduction actively and 150 degrees of flexion and abduction passively. Target Visit 10 OT Problem 4 OT Problem #4 Impaired Strength OT Goal 1 Goal / Goal Update Patient to improve left UE strength for ADLs: - left shoulder to 4+/5 - left elbow to 4+/5 - left wrist to 4+/5 - left medical assembly to 40 lbs. Target Visit 10
--- NOTE | 2025-03-13 16:03 | PTOPEVAL1 ---
Assessment and note entered by Katy Carpio, PT Evaluation Information Assessment Status Evaluation ICD-10 Condition Codes (PT) Difficulty Walking R26.2,Abnormalities of gait and mobility R26.9,Weakness R53.1 Other ICD-10 Condition Codes ( hemiplegia s/p CVA PT) Onset Aug 2024 Subjective Information pt had CVA 03-04-24 with L weakness; he was here for PT treatment, was discharged and had returned to work. He reports he had several falls at work and was let go.~ Jan 22. Starting in August 2024, had more pain in his L arm and leg, with more falls. in the past 3 months, have had about 16 falls-- with walking and trip over L foot have seen a psychologist and do not like the new meds they have me on-- feel like an empty shell have one entry step into home; have basement with one hand railing, have been going down there; activity: use cane and rollator for walking; home with his mom; no longer driving due to leg pain and spasms- mom drives him or uber rides Reported Pain Level Pain Score 8: Self Report - leg Pain Score Self Report Additional Pain Score Comments leg hurts, jabbing in knee and knee going to pop off Additional Pain Score Comments no complaint Assessment PT Clinical Summary Jefferson has the diagnosis of falls, weakness, s/p CVA. He has had PT here in the past. Now, reports increased pain in L leg, and has had multiple falls with walking- loss of balance and tripping over L toe. He is no longer working and lives with his mom. And is no longer driving due to leg pain and spasms. During the evaluation, he was teary- eyed, voiced frustration about his situation and was hitting his L thigh. With the evaluation: Tinetti gait/balance score of 8/28= high risk for falls; decreased strength and motor control of L LE; poor walking pattern with cane and recommend he use the wheeled walker; 2 minute walking test distance of 100' with wheeled walker. Static standing without UE support time of 22 seconds. Skilled PT services are indicated to increase LE strength, transfer, gait and mobility skills, to improve safety with mobility and decrease risk for falls. Education for HEP and safety with walking. Plan of Care Interventions Gait Training,Neuro Re-education,Patient/Caregiver Education,Therapeutic Activities,Therapeutic Exercise PT Services Indicated Yes Treatment Frequency and 2x/wk for 10 visits Duration These treatments will address the objective and functional deficits as defined above. The patient will be advanced safely and appropriately in order for the patient to progress towards his/her prior level of function. Additional exercises will be introduced and as well as a comprehensive home exercise program upon discharge, if needed, ?to ensure carryover of functional gains achieved in the clinic. This treatment plan has been reviewed and agreement upon by the patient.
--- NOTE | 2025-03-13 16:04 | OPREHPOC ---
Outpatient Therapy Plan of Care This is a Multidisciplinary Plan of Care that may contain components documented by all disciplines (PT, OT, and ST.) PT Problem 1 PT Problem #1 Knowledge Deficit PT Goal 1 Goal / Goal Update *independent with HEP Target Visit 10 PT Problem 2 PT Problem #2 Impaired Strength PT Goal 1 Goal / Goal Update improve L LE strength to improve gait pattern and mobility: 1* pt ambulate 2 minutes without L toe drag 2* stand to sit transfer with control of motion/ no plop x 5 reps 3* static standing without UE support x 60 seconds Target Visit 10 PT Problem 3 PT Problem #3 Impaired Functional Mobility PT Goal 1 Goal / Goal Update 1* 2 minute walking test distance with wheeled walker, 200' 2*5 reps sit/stand time of 25 seconds 3* Tinetti balance/ gait score of 15/28 4* pt report NO falls Target Visit 10 OT Problem 1 OT Problem #1 Knowledge Deficit OT Goal 1 Goal / Goal Update Patient to be independent with instructed materials. Target Visit 10 OT Problem 2 OT Problem #2 Pain OT Goal 1 Goal / Goal Update Patient to report reduced left shoulder pain to 4/ 10 or less with ADLs. Target Visit 10 OT Problem 3 OT Problem #3 Impaired Flexibility OT Goal 1 Goal / Goal Update Patient to improve functional flexibility of the left shoulder to improve comfort with shoulder use as measured by progressing to 120 degrees of active shoulder flexion and abduction actively and 150 degrees of flexion and abduction passively. Target Visit 10 OT Problem 4 OT Problem #4 Impaired Strength OT Goal 1 Goal / Goal Update Patient to improve left UE strength for ADLs: - left shoulder to 4+/5 - left elbow to 4+/5 - left wrist to 4+/5 - left byproducts maker to 40 lbs. Target Visit 10
[2025-03-20 14:16] VITALS: BP_SYST 140
--- NOTE | 2025-03-20 15:07 | OTOPPROG ---
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 He attended therapy here March 2024-Nov 2024. He returns due to regressing and having falls. He reports in the last month he has had 10 falls at least. Reports left shoulder pain at 8-9/10 with ROM. He reports he is able to use his left hand to open doors and help dress himself. Assessment OT Clinical Summary Patient referred to OT with dx of hemiplegia and TIA/CVA. He has been participating in OT x10 sessions and demonstrates improvements with improved functional shoulder strength, scapular strength and mobility, reduced shoulder pain, and improved functional use of his right UE. Continued skilled OT indicated to progress HEP and continued therapeutic exercise. He benefits from hands on therapy due to reduced body awareness and body mechanics. Plan of Care Interventions Therapeutic Exercise,Manual Therapy,Neuro Re- education,Therapeutic Activities,Hot Pack/Cold Pack OT Services Indicated Yes Treatment Frequency and 2x/week for 10 visits Duration These treatments will address the objective and functional deficits as defined above. The patient will be advanced safely and appropriately in order for the patient to progress towards his/her prior level of function. Additional exercises will be introduced and as well as a comprehensive home exercise program upon discharge, if needed, ?to ensure carryover of functional gains achieved in the clinic. This treatment plan has been reviewed and agreement upon by the patient.
--- NOTE | 2025-03-20 15:08 | OPREHPOC ---
Outpatient Therapy Plan of Care This is a Multidisciplinary Plan of Care that may contain components documented by all disciplines (PT, OT, and ST.) PT Problem 1 PT Problem #1 Knowledge Deficit PT Goal 1 Goal / Goal Update *independent with HEP Target Visit 10 PT Problem 2 PT Problem #2 Impaired Strength PT Goal 1 Goal / Goal Update improve L LE strength to improve gait pattern and mobility: 1* pt ambulate 2 minutes without L toe drag 2* stand to sit transfer with control of motion/ no plop x 5 reps 3* static standing without UE support x 60 seconds Target Visit 10 PT Problem 3 PT Problem #3 Impaired Functional Mobility PT Goal 1 Goal / Goal Update 1* 2 minute walking test distance with wheeled walker, 200' 2*5 reps sit/stand time of 25 seconds 3* Tinetti balance/ gait score of 15/28 4* pt report NO falls Target Visit 10 OT Problem 1 OT Problem #1 Knowledge Deficit OT Goal 1 Goal / Goal Update Patient to be independent with instructed materials. ---OT POC UPDATE 03/20/25--- Met, continue Target Visit 20 OT Problem 2 OT Problem #2 Pain OT Goal 1 Goal / Goal Update Patient to report reduced left shoulder pain to 4/ 10 or less with ADLs. ---OT POC UPDATE 03/20/25--- Progressing, continue Target Visit 10 OT Problem 3 OT Problem #3 Impaired Flexibility OT Goal 1 Goal / Goal Update Patient to improve functional flexibility of the left shoulder to improve comfort with shoulder use as measured by progressing to 120 degrees of active shoulder flexion and abduction actively and 150 degrees of flexion and abduction passively. 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 ---OT POC UPDATE 03/20/25--- - progressing, continue shoulder strengthening - met - met - not measured this date Target Visit 10
[2025-04-28 12:36] VITALS: BP_SYST 140
--- NOTE | 2025-04-28 13:30 | OTOPPROG ---
Assessment and note entered by Duarte Tao, ADRYAN/Cortez, CHT OT Progress Update 04/28/25 Assessment Status Progress Diagnosis hemiplegia, history of TIA, repeated falls Subjective Information Patient reports progress in the left shoulder, reporting less pain with ROM and use. A month ago he was reporting 8-9/10 pain with active ROM and today he is reporting 3-4/10. He reports he has been carrying trash bags with the left hand. He reports he continues to try to use the left hand as much as possible and work on his HEP. Assessment OT Clinical Summary Patient referred to OT with dx of hemiplegia and TIA/CVA. He has been participating in OT 19 sessions and demonstrates improvements with improved functional shoulder strength, scapular strength and mobility, reduced shoulder pain, and improved functional use of his right UE. Continued skilled OT indicated to progress HEP and continued therapeutic exercise. He benefits from hands on therapy due to reduced body awareness and body mechanics. Plan of Care Interventions Therapeutic Exercise,Manual Therapy,Neuro Re- education,Therapeutic Activities,Hot Pack/Cold Pack OT Services Indicated Yes Treatment Frequency and 2x/week for 8 visits Duration These treatments will address the objective and functional deficits as defined above. The patient will be advanced safely and appropriately in order for the patient to progress towards his/her prior level of function. Additional exercises will be introduced and as well as a comprehensive home exercise program upon discharge, if needed, ?to ensure carryover of functional gains achieved in the clinic. This treatment plan has been reviewed and agreement upon by the patient.
--- NOTE | 2025-04-28 13:30 | OPREHPOC ---
Outpatient Therapy Plan of Care This is a Multidisciplinary Plan of Care that may contain components documented by all disciplines (PT, OT, and ST.) PT Problem 1 PT Problem #1 Knowledge Deficit PT Goal 1 Goal / Goal Update *independent with HEP Target Visit 10 PT Problem 2 PT Problem #2 Impaired Strength PT Goal 1 Goal / Goal Update improve L LE strength to improve gait pattern and mobility: 1* pt ambulate 2 minutes without L toe drag 2* stand to sit transfer with control of motion/ no plop x 5 reps 3* static standing without UE support x 60 seconds Target Visit 10 PT Problem 3 PT Problem #3 Impaired Functional Mobility PT Goal 1 Goal / Goal Update 1* 2 minute walking test distance with wheeled walker, 200' 2*5 reps sit/stand time of 25 seconds 3* Tinetti balance/ gait score of 15/28 4* pt report NO falls Target Visit 10 OT Problem 1 OT Problem #1 Knowledge Deficit OT Goal 1 Goal / Goal Update Patient to be independent with instructed materials. ---OT POC UPDATE 03/20/25--- Met, continue ---OT POC UPDATE 04/28/25--- Met, continue as HEP is upgraded Target Visit 27 OT Problem 2 OT Problem #2 Pain OT Goal 1 Goal / Goal Update Patient to report reduced left shoulder pain to 4/ 10 or less with ADLs. ---OT POC UPDATE 03/20/25--- Progressing, continue ---OT POC UPDATE 04/28/25--- Met, continue to monitor pain with progressive ther ex Target Visit 27 OT Problem 3 OT Problem #3 Impaired Flexibility OT Goal 1 Goal / Goal Update Patient to improve functional flexibility of the left shoulder to improve comfort with shoulder use as measured by progressing to 120 degrees of active shoulder flexion and abduction actively and 150 degrees of flexion and abduction passively. ---OT POC UPDATE 03/20/25--- Partially met, continue ---OT POC UPDATE 04/28/25--- Not met, no changes in shoulder ROM Target Visit 27 OT Problem 4 OT Problem #4 Impaired Strength OT Goal 1 Goal / Goal Update Patient to improve left UE strength for ADLs: - left shoulder to 4+/5 - left elbow to 4+/5 - left wrist to 4+/5 - left deputy clerk to 40 lbs. ---OT POC UPDATE 03/20/25--- - progressing, continue shoulder strengthening - met - met - not measured this date ---OT POC UPDATE 04/28/25--- - shoulder is progressing, not met, continue - elbow is progressing, not met, continue - wrist is progressing, not met, continue - deputy clerk goal met, upgrade to 55 lbs. Target Visit 27
--- NOTE | 2025-04-28 14:18 | OPREHPOC ---
Outpatient Therapy Plan of Care This is a Multidisciplinary Plan of Care that may contain components documented by all disciplines (PT, OT, and ST.) PT Problem 1 PT Problem #1 Knowledge Deficit PT Goal 1 Goal / Goal Update *independent with HEP 04-28-25 progress goal met, continue to progress education and HEP Target Visit 16 PT Problem 2 PT Problem #2 Impaired Strength PT Goal 1 Goal / Goal Update improve L LE strength to improve gait pattern and mobility: 1* pt ambulate 2 minutes without L toe drag 2* stand to sit transfer with control of motion/ no plop x 5 reps 3* static standing without UE support x 60 seconds 04-28-25 progress goals met NEW GOALS: 1* pt ambulate without L hip ER 2* pt ambulate with L hip and knee flexion/ no circumduction of L LE Target Visit 16 PT Problem 3 PT Problem #3 Impaired Functional Mobility PT Goal 1 Goal / Goal Update 1* 2 minute walking test distance with wheeled walker, 200' 2*5 reps sit/stand time of 25 seconds 3* Tinetti balance/ gait score of 1528 4* pt report NO falls 04-28-25 progress goal 2 met; improved with #1- 160'; #3 ; continue towards goals Target Visit 16 OT Problem 1 OT Problem #1 Knowledge Deficit OT Goal 1 Goal / Goal Update Patient to be independent with instructed materials. ---OT POC UPDATE 03/20/25--- Met, continue ---OT POC UPDATE 04/28/25--- Met, continue as HEP is upgraded Target Visit 27 OT Problem 2 OT Problem #2 Pain OT Goal 1 Goal / Goal Update Patient to report reduced left shoulder pain to 4/ 10 or less with ADLs. ---OT POC UPDATE 03/20/25--- Progressing, continue ---OT POC UPDATE 04/28/25--- Met, continue to monitor pain with progressive ther ex Target Visit 27 OT Problem 3 OT Problem #3 Impaired Flexibility OT Goal 1 Goal / Goal Update Patient to improve functional flexibility of the left shoulder to improve comfort with shoulder use as measured by progressing to 120 degrees of active shoulder flexion and abduction actively and 150 degrees of flexion and abduction passively. ---OT POC UPDATE 03/20/25--- Partially met, continue ---OT POC UPDATE 04/28/25--- Not met, no changes in shoulder ROM Target Visit 27 OT Problem 4 OT Problem #4 Impaired Strength OT Goal 1 Goal / Goal Update Patient to improve left UE strength for ADLs: - left shoulder to 4+/5 - left elbow to 4+/5 - left wrist to 4+/5 - left milking machine technician to 40 lbs. ---OT POC UPDATE 03/20/25--- - progressing, continue shoulder strengthening - met - met - not measured this date ---OT POC UPDATE 04/28/25--- - shoulder is progressing, not met, continue - elbow is progressing, not met, continue - wrist is progressing, not met, continue - milking machine technician goal met, upgrade to 55 lbs. Target Visit 27
--- NOTE | 2025-04-28 14:18 | PTOPPROG ---
Assessment and note entered by Katy Carpio, PT Assessment Status Progress ICD-10 Condition Codes (PT) Difficulty Walking R26.2,Abnormalities of gait and mobility R26.9,Weakness R53.1 Other ICD-10 Condition Codes ( hemiplegia s/p CVA PT) Onset Aug 2024 Subjective Information the ankle brace helps, but toe sometimes drags still; have fallen 2x recently- one was outside and foot half on side walk and half on grass when getting the mail; have been doing the leg exercises at home, using the band; want to continue with therapy. Assessment PT Clinical Summary Jefferson has received 8 PT sessions. Compared to the initial evaluation: 2 minute walking test: with wheeled walker 100' to 160' with cane; 5 reps sit/stand 55 seconds to 23 seconds with use of 1 UE; walking without L toe drag and using a ankle shoe lace brace/DF assist, decreased L hip and knee flexion and L hip in ER; Tinetti balance from 8 to 13/28; static standing without UE support 1 minute and 38 seconds; HEP education and progression of balance activities. He has had 2 falls in the past week. Recently he has reported more pain in L lateral hip and soreness of L leg- will monitor. The goals were partially met. Continue PT treatment, to further increase gait, balance and LE strength, with progression of HEP. Plan of Care Interventions Gait Training,Neuro Re-education,Patient/Caregiver Education,Therapeutic Activities,Therapeutic Exercise PT Services Indicated Yes Treatment Frequency and 1-2 x/wk for 8 visits Duration These treatments will address the objective and functional deficits as defined above. The patient will be advanced safely and appropriately in order for the patient to progress towards his/her prior level of function. Additional exercises will be introduced and as well as a comprehensive home exercise program upon discharge, if needed, ?to ensure carryover of functional gains achieved in the clinic. This treatment plan has been reviewed and agreement upon by the patient.
--- NOTE | 2025-05-12 14:54 | PCPTNOTE ---
This treatment is being continued on visit number [id number] Please see documentation on both accounts to view progress. Completed interventions, outcomes, and problems have been marked as Inactive to facilitate the copying of the Care plan routine for recurring accounts.
== END 2025-05-12 11:17 | disposition home or self-care (01) ==
LOC: ANHOT 10:15
PROVIDERS: PCP Family Medicine; Visit Provider Family Medicine
DX: G81.94 Hemiplegia, unspecified affecting left nondominant side (principal); R29.6 Repeated falls; Z86.73 Personal history of transient ischemic attack (TIA), and cerebral infarction without residual deficits
CPT/HCPCS: 97110; 97112; 97116; 97140; 97161; 97165; 97530

== ENCOUNTER 2025-06-09 10:30 | Outpatient (RCR) | payer OTHER, SELFPAY ==
--- NOTE | 2025-05-12 14:55 | PCPTNOTE ---
This treatment is being continued from visit number [id number] Please see documentation on both accounts to view progress. Completed interventions, outcomes, and problems have been marked as Inactive to facilitate the copying of the Care plan routine for recurring accounts.
--- NOTE | 2025-05-12 14:56 | OPREHPOC ---
Outpatient Therapy Plan of Care This is a Multidisciplinary Plan of Care that may contain components documented by all disciplines (PT, OT, and ST.) PT Problem 1 PT Problem #1 Knowledge Deficit PT Goal 1 Goal / Goal Update *independent with HEP 04-28-25 progress goal met, continue to progress education and HEP Target Visit 16 PT Problem 2 PT Problem #2 Impaired Strength PT Goal 1 Goal / Goal Update improve L LE strength to improve gait pattern and mobility: 1* pt ambulate 2 minutes without L toe drag 2* stand to sit transfer with control of motion/ no plop x 5 reps 3* static standing without UE support x 60 seconds 04-28-25 progress goals met NEW GOALS: 1* pt ambulate without L hip ER 2* pt ambulate with L hip and knee flexion/ no circumduction of L LE Target Visit 16 PT Problem 3 PT Problem #3 Impaired Functional Mobility PT Goal 1 Goal / Goal Update 1* 2 minute walking test distance with wheeled walker, 200' 2*5 reps sit/stand time of 25 seconds 3* Tinetti balance/ gait score of 1528 4* pt report NO falls 04-28-25 progress goal 2 met; improved with #1- 160'; #3 ; continue towards goals Target Visit 16 OT Problem 1 OT Problem #1 Knowledge Deficit OT Goal 1 Goal / Goal Update Patient to be independent with instructed materials. ---OT POC UPDATE 03/20/25--- Met, continue ---OT POC UPDATE 04/28/25--- Met, continue as HEP is upgraded Target Visit 27 OT Problem 2 OT Problem #2 Pain OT Goal 1 Goal / Goal Update Patient to report reduced left shoulder pain to 4/ 10 or less with ADLs. ---OT POC UPDATE 03/20/25--- Progressing, continue ---OT POC UPDATE 04/28/25--- Met, continue to monitor pain with progressive ther ex Target Visit 27 OT Problem 3 OT Problem #3 Impaired Flexibility OT Goal 1 Goal / Goal Update Patient to improve functional flexibility of the left shoulder to improve comfort with shoulder use as measured by progressing to 120 degrees of active shoulder flexion and abduction actively and 150 degrees of flexion and abduction passively. ---OT POC UPDATE 03/20/25--- Partially met, continue ---OT POC UPDATE 04/28/25--- Not met, no changes in shoulder ROM Target Visit 27 OT Problem 4 OT Problem #4 Impaired Strength OT Goal 1 Goal / Goal Update Patient to improve left UE strength for ADLs: - left shoulder to 4+/5 - left elbow to 4+/5 - left wrist to 4+/5 - left clinical rehabilitation coordinator to 40 lbs. ---OT POC UPDATE 03/20/25--- - progressing, continue shoulder strengthening - met - met - not measured this date ---OT POC UPDATE 04/28/25--- - shoulder is progressing, not met, continue - elbow is progressing, not met, continue - wrist is progressing, not met, continue - clinical rehabilitation coordinator goal met, upgrade to 55 lbs. Target Visit 27
--- NOTE | 2025-06-06 14:26 | OPREHPOC ---
Outpatient Therapy Plan of Care This is a Multidisciplinary Plan of Care that may contain components documented by all disciplines (PT, OT, and ST.) PT Problem 1 PT Problem #1 Knowledge Deficit PT Goal 1 Goal / Goal Update *independent with HEP 04-28-25 progress goal met, continue to progress education and HEP 06-06-25 d/c goal met Target Visit 16 Progress Met PT Problem 2 PT Problem #2 Impaired Strength PT Goal 1 Goal / Goal Update improve L LE strength to improve gait pattern and mobility: 1* pt ambulate 2 minutes without L toe drag 2* stand to sit transfer with control of motion/ no plop x 5 reps 3* static standing without UE support x 60 seconds 04-28-25 progress goals met NEW GOALS: 1* pt ambulate without L hip ER 2* pt ambulate with L hip and knee flexion/ no circumduction of L LE 06-06-25 d/c goals not met Target Visit 16 Progress Not Met PT Problem 3 PT Problem #3 Impaired Functional Mobility PT Goal 1 Goal / Goal Update 1* 2 minute walking test distance with wheeled walker, 200' 2*5 reps sit/stand time of 25 seconds 3* Tinetti balance/ gait score of 1528 4* pt report NO falls 04-28-25 progress goal 2 met; improved with #1- 160'; #3 ; continue towards goals 06-06-25 d/c goals 1,2,3 met Target Visit 16 Progress Partially Met OT Problem 1 OT Problem #1 Knowledge Deficit OT Goal 1 Goal / Goal Update Patient to be independent with instructed materials. ---OT POC UPDATE 03/20/25--- Met, continue ---OT POC UPDATE 04/28/25--- Met, continue as HEP is upgraded Target Visit 27 OT Problem 2 OT Problem #2 Pain OT Goal 1 Goal / Goal Update Patient to report reduced left shoulder pain to 4/ 10 or less with ADLs. ---OT POC UPDATE 03/20/25--- Progressing, continue ---OT POC UPDATE 04/28/25--- Met, continue to monitor pain with progressive ther ex Target Visit 27 OT Problem 3 OT Problem #3 Impaired Flexibility OT Goal 1 Goal / Goal Update Patient to improve functional flexibility of the left shoulder to improve comfort with shoulder use as measured by progressing to 120 degrees of active shoulder flexion and abduction actively and 150 degrees of flexion and abduction passively. ---OT POC UPDATE 03/20/25--- Partially met, continue ---OT POC UPDATE 04/28/25--- Not met, no changes in shoulder ROM Target Visit 27 OT Problem 4 OT Problem #4 Impaired Strength OT Goal 1 Goal / Goal Update Patient to improve left UE strength for ADLs: - left shoulder to 4+/5 - left elbow to 4+/5 - left wrist to 4+/5 - left chip bin conveyor tender to 40 lbs. ---OT POC UPDATE 03/20/25--- - progressing, continue shoulder strengthening - met - met - not measured this date ---OT POC UPDATE 04/28/25--- - shoulder is progressing, not met, continue - elbow is progressing, not met, continue - wrist is progressing, not met, continue - chip bin conveyor tender goal met, upgrade to 55 lbs. Target Visit 27
--- NOTE | 2025-06-06 14:27 | PTOPDC ---
Assessment and note entered by Katy Carpio, PT Assessment Status Discharge ICD-10 Condition Codes (PT) Difficulty Walking R26.2,Abnormalities of gait and mobility R26.9,Weakness R53.1 Other ICD-10 Condition Codes ( hemiplegia s/p CVA PT) Onset Aug 2024 Subjective Information still having pain in my left leg; use cane or wheeled walker- depending on how his leg leg is doing; in the past 2 weeks have fallen 3x; when on the floor, can get up if position myself just right, can pull myself up; having to change insurance and having problems with getting it all figured out--stressed about it and trying to make all the phone calls for it; Reported Pain Level Pain Score 8: Self Report Pain Score 9: Self Report Additional Pain Score Comments have muscle relaxer and pain pill--they help him sleep and with the muscle tone Assessment PT Clinical Summary Jefferson has received a total of 16 PT sessions. He has made slight improvements with comparison to last assessment. Today for assessment: to dept with rollator and L ankle DF shoe string brace; 2 minute walking test distance of 300' with rollator; Tinetti balance score of 16/28; 5 reps sit/stand time of 19 seconds without use of UE's; education for HEP He continues to have increased tone and pain in his L LE. And continues to have falls. He frustrates easily and is upset with himself and his L leg. The goals were partially met. Discharge from PT services. He will continue to do the leg exercises at home. And using the wheeled walker or cane for walking, depending upon how he feels and fatigue level. Plan of Care PT Services Indicated No
--- NOTE | 2025-06-09 11:26 | OTOPDC ---
Assessment and note entered by Duarte Tao, OTR/Cortez, BECKY OT D/C Notification 06/09/25 Assessment Status Discharge Diagnosis hemiplegia, history of TIA, repeated falls Subjective Information Patient reports he is using his left UE to close car doors, carrying bags of groceries, and picking up pills. He reports he tries to use his left hand as much as possible. He reports his left shoulder pain at rest has reduced to 1/10 and with active ROM it has reduced to 2-3/10. His shoulder pain at the start of care was 8-9/10. Reported Pain Level Pain Score (L) shoulder pain 1/10 at rest Additional Pain Score Comments (L) shoulder pain 2/10 with active ROM Assessment OT Clinical Summary Patient referred to OT with dx of hemiplegia and TIA/CVA. He has been participating in OT 27 sessions and since the start of care he demonstrates improvements with improved functional shoulder strength, scapular strength and mobility , reduced shoulder pain, and improved functional use of his right UE. In the last month his progress appears to be tapering off. He is currently independent with shoulder ROM and strengthening HEP. We are discharging today with patient independent with all materials. Plan of Care OT Services Indicated No
== END 2025-06-09 11:52 | disposition home or self-care (01) ==
LOC: ANHOT 10:30
PROVIDERS: PCP Family Medicine; Visit Provider Family Medicine
DX: G81.94 Hemiplegia, unspecified affecting left nondominant side (principal); R29.6 Repeated falls; Z86.73 Personal history of transient ischemic attack (TIA), and cerebral infarction without residual deficits
CPT/HCPCS: 97110; 97112; 97140; 97530

== ENCOUNTER 2025-09-26 14:00 | Outpatient (RCR) | payer MEDICAID, SELFPAY ==
--- NOTE | 2025-08-22 16:54 | OPREHPOC ---
Outpatient Therapy Plan of Care This is a Multidisciplinary Plan of Care that may contain components documented by all disciplines (PT, OT, and ST.) PT Problem 1 PT Problem #1 Knowledge Deficit PT Goal 1 Goal / Goal Update Pt. will demo good understanding of diagnosis and prognosis, HEPs. Target Visit 10 PT Problem 2 PT Problem #2 Pain PT Goal 1 Goal / Goal Update Pt will report 2/10 at worst on L hip specifically when performing ambulation on uneven surfaces with least restrictive AD. Target Visit 16 PT Problem 3 PT Problem #3 Impaired Balance PT Goal 1 Goal / Goal Update 1. Pt will demo reduced postural sway, Tinetti Assessment score of 21/28 or more to reduce risk for falls. 2. Pt will demo a dynamic standing balance score of GOOD (able to maintain balance while picking objects off the floor or reaching objects overhead ) Target Visit 24 PT Problem 4 PT Problem #4 Impaired Gait PT Goal 1 Goal / Goal Update Pt will demo normalized gait pattern with equal weight shift and stride length, improved arm swing and postural stability on various ground surfaces and stairs. Target Visit 24
--- NOTE | 2025-08-22 16:54 | PTOPEVAL1 ---
Assessment and note entered by Allyssa Hinojosa, PT Evaluation Information Assessment Status Evaluation Diagnosis M79.605 ICD-10 Condition Codes (PT) Pain in left hip M25.552,Abnormalities of gait and mobility R26.9,Weakness R53.1 Subjective Information Pt reports increased sharp pain to L hip which is aggravated when his foot turns out, when it spasms; he has fallen a lot. Reports falls are usually when walking on uneven ground, turning too quick, losing his balance. Uses a rollator upstairs and whenever he needs to walk longer distances. Mostly uses a cane when he is out to [facility] or walk shorter distance. He drives only to short distances and to very familiar places. He states that when he went back to work earlier this year, he was walking quarter of a mile 2x/day on a daily whilst carrying a 20# load and it was getting too much and that was when his leg started hurting and he has been having falls. He is hoping to walk without the cane and wants to improve his balance, decrease pain in the hip. Reported Pain Level Pain Score 5: Self Report Assessment PT Clinical Summary Jefferson presents to therapy with c/o L hip and leg pain. Significant PMHx include a CVA in 2023, repeated falls at home and work. Demos increased flexor tone to L UE and LE, postural instability, ROM and strength deficits and gait impairments which impact pt's ability to safely perform ADLs and ambulation at home and in community. He will benefit from skilled PT to reduce pain, improve stability, posture and balance to reduce risk for falls. Plan of Care Interventions Check Out for Orthotic/Prosthetic,Electrical Stimulation,Gait Training,Hot Pack/Cold Pack, Manual Therapy,Neuro Re-education,Patient/ Caregiver Education,Therapeutic Activities, Therapeutic Exercise,Ultrasound,Other Other Interventions Taping, IASTM, Dry Needling PT Services Indicated Yes Treatment Frequency and 2x/wk x 24 visits Duration These treatments will address the objective and functional deficits as defined above. The patient will be advanced safely and appropriately in order for the patient to progress towards his/her prior level of function. Additional exercises will be introduced and as well as a comprehensive home exercise program upon discharge, if needed, ?to ensure carryover of functional gains achieved in the clinic. This treatment plan has been reviewed and agreement upon by the patient.
--- NOTE | 2025-09-22 09:44 | PCPTNOTE ---
Cancelled d/t a fall. AKS
== END 2025-11-20 23:59 | disposition home or self-care (01) ==
LOC: ANHPT 14:00
PROVIDERS: PCP Family Medicine; Visit Provider Family Medicine
DX: M79.605 Pain in left leg (principal)
CPT/HCPCS: 97110; 97112; 97116; 97140; 97161; 97530